=== PATIENT | male | born 1960 | race Caucasian/White ===

== ENCOUNTER → 2019-02-17 | Outpatient (CLI) | payer OTHER ==
[~2019-02-17] MED LIST: ANASPAZ0.125 MG PO; ASA81BEC PO; CIPROFLOXACIN500 M3 PO; CRESTOR20 MG PO; HYDROCODON-ACE1 EACH PO; LISINOPRIL2.5 MG PO; LOPRESSOR 12.12.5 MG PO; PLAVIX 75 MG TA75 MG PO
== END ==
LOC: MRI 12:27
DX: M47.22 Other spondylosis with radiculopathy, cervical region (principal); M48.02 Spinal stenosis, cervical region; M25.78 Osteophyte, vertebrae; Z68.31 Body mass index [BMI] 31.0-31.9, adult

== ENCOUNTER → 2020-05-13 | Outpatient (CLI) | payer OTHER | LOC: CAT 10:53 | PROVIDERS: ATTEND Family Medicine | DX: J84.10 Pulmonary fibrosis, unspecified (principal); I25.10 Atherosclerotic heart disease of native coronary artery without angina pectoris; F17.200 Nicotine dependence, unspecified, uncomplicated ==

== ENCOUNTER → 2020-08-02 | Outpatient (CLI) | payer OTHER | LOC: MRI 12:12 | PROVIDERS: ATTEND Family Medicine | DX: M48.02 Spinal stenosis, cervical region (principal); M50.121 Cervical disc disorder at C4-C5 level with radiculopathy; M25.78 Osteophyte, vertebrae; M47.22 Other spondylosis with radiculopathy, cervical region ==

== ENCOUNTER → 2020-08-09 | Outpatient (CLI) | payer OTHER | LOC: ULTRA 11:51 | PROVIDERS: ATTEND Nurse Practitioner | DX: R60.0 Localized edema (principal) ==

== ENCOUNTER → 2020-12-31 | Outpatient (CLI) | payer OTHER | LOC: ULTRA 12:29 | PROVIDERS: ATTEND Nurse Practitioner | DX: N50.89 Other specified disorders of the male genital organs (principal); N50.819 Testicular pain, unspecified ==